=== PATIENT | female | born 1985 | race Caucasian/White ===

== ENCOUNTER 2018-07-22 22:38 | Emergency (ER) | payer MEDICAID ==
[~2018-07-22] VITALS: Ht 167.6 cm; Wt 67.1 kg
--- NOTE | 2018-07-22 23:04 | NUR ---
PATIENT IN BED AAOX3,MAEX4 .NO RESPIRATORY DISTRESS DISTRESS NOTED BREATHING EVEN AND UNLABORED .CAME FOR FOOT PAIN HURT HER 4TH TOE WHILE SHE WAS [place] PER PATIENT AT REST DULL PAIN 2 TO 3 OVER 10 AND WALKING 8 OVER 10 ACHING PAIN .
--- NOTE | 2018-07-22 23:10 | NUR ---
SEEN AND EXAMINED BY MARCELINO SHARMA AT BEDSIDE .
--- NOTE | 2018-07-22 23:35 | NUR ---
XRAY AT BEDSIDE TOLERATED LEFT FOOT COMPLETE XRAY.
--- NOTE | 2018-07-23 00:44 | NUR ---
Patient discharged to home in stable conditon. Written and verbal after care instructions given. Patient verbalizes understanding of instructions. Pt ambulated out of ER with steady gait, no acute signs of distress, VSS, all belongings taken.
[2018-07-23 00:45] VITALS: BP 125/74
== END 2018-07-23 00:46 | disposition home or self-care (01) ==
LOC: ER 22:39
DX: S93.602A Unspecified sprain of left foot, initial encounter (principal); F12.10 Cannabis abuse, uncomplicated; W22.8XXA Striking against or struck by other objects, initial encounter; Y93.89 Activity, other specified; Y92.89 Other specified places as the place of occurrence of the external cause; Y99.8 Other external cause status
CPT/HCPCS: 73630; A4663